=== PATIENT | female | born 1985 | race Caucasian/White ===

== ENCOUNTER 2025-04-09 12:50 | Emergency (ER) | payer MEDICAID ==
[~2025-04-09] VITALS: Ht 160 cm; Wt 54.2 kg
[2025-04-09 13:12] VITALS: BP 123/77; PULSE 96; RESP 18; TEMP 96.6; O2SAT 98
--- NOTE | 2025-04-09 16:24 | Physician Documentation ---
HPI ~ General Chief Complaint: Tooth Problem Stated Complaint: MOUTH INFECTION Time Seen by MD: 15:31 OK to notify your PCP?: Yes Source: patient Mode of Arrival: POV Exam Limitations: no limitations History of Present Illness HPI Comment 39-year-old female with lower jaw dental pain past 2 weeks. She takes opiate medication already for her chronic pain syndrome but she is requesting some antibiotics. She has noticed that she has had some chills and the area seems more red. She has not had any drainage. All those teeth are completely worn down to the gumline and just the roots are visible. She has a upcoming dental appointment to have these teeth pulled. Medication Reconciliation Allergies: Coded Allergies: ibuprofen (Verified Allergy, Severe, 04/09/25) Review of Systems All Other Systems at this time: Reviewed and Negative Physical Exam Vital Signs: RN Vital Signs have been reviewed: Yes, Temperature: 96.6, Source: Temporal, Heart Rate: 96, Respiratory Rate: 18, BP: 123/77, Pulse Oximetry: 98, Weight: 54.200 Pulse Oximetry Reflects: adequate oxygenation Physical Exam General: Alert, no distress. HEENT: No injection, moist mucous membranes. Neck: Full range of motion. Respiratory: No respiratory distress, equal chest rise and fall. Chest: No accessory muscle use. Cardiovascular: Regular rate and rhythm. Gastrointestinal: Nondistended. Extremities: Normal range of motion, no deformity. Neurologic: Oriented x4. Psychiatric: Normal mood and affect. Skin: Normal color, warm and dry. Teeth/Gums: fractured tooth, missing teeth, tender, gingiva redness, gingiva swelling Teeth/Gums Central incisors, lateral incisors and canine teeth bilaterally on the lower jaw Progress Results/Orders Reviewed/noted all lab results: Yes Results/Orders Vital Signs 04/09/25 13:12 Temp 96.6 Pulse 96 Resp 18 B/P (MAP) 123/77 Pulse Ox 98 Medical Decision Making Additional info obtained from: old records Findings [age] old female with dental infection of all of the front lower teeth. She has a upcoming dental appointment to have all of these pulled and has been having increasing pain and swelling over the past 2 weeks. I prescribed her Augmentin with the 1st dose given here in the department. Has pain medication already at home for this she is just requesting some antibiotics. She was given follow up instructions and return instructions. Differential Dx:Considerations: Include: Facial Cellulitis, Tooth avulsion, Trigeminal neuralgia, Tooth subluxation Departure Disposition: 01 HOME / SELF CARE / HOMELESS Impression: Primary Impression: Dental abscess Condition: Stable Discharge Instructions: Dental Abscess Additional Instructions: Follow up with your dentist as scheduled. Return back here for any new or worsening symptoms. Referrals: NO PRIMARY CARE PROVIDER (PCP) Prescriptions Amox Tr/Potassium Clavulanate (Augmentin 875-125 Tablet) 1 Each Tablet 1 TAB PO Q12H for 10 Days, #20 TAB Prov: CHLOÉ GRIGGS 04/09/25 Education Educated: Patient, Family Educated regarding: diagnosis, treatment, prognosis, need for follow up Additional Comment Medical Screen Exam This patient recieved a medical screening examination. After reviewing the individual's medical complaints with presenting symptoms and performing an appropriate physical examination, it was determined that no immediate life- threatening emergency medical condition is present. This individual is also not a women having contractions. Signature Scribe Signature: . Attestation: Scribed for Chloé Griggs by Chloé Eubanks NP . 04/09/25 16:26 Parts of this note were created using [employer] voice recognition software program. While efforts were made to correct any mistakes made by this voice recognition software program, nonsensical phrases may remain in this note. In addition, there may be errors and syntax, grammar, content and spelling. CHLOÉ GRIGGS Apr 09, 2025 16:24
[2025-04-09] MEDS ORDERED: AMOX-117 PO (16:25)
[2025-04-09] MEDS: amox tr/potassium clavulanate 875/125mg TAB PO ONE (16:38)
== END 2025-04-09 16:42 | disposition home or self-care (01) ==
LOC: ER 12:50
DX: K04.7 Periapical abscess without sinus (principal); G89.4 Chronic pain syndrome; Z88.6 Allergy status to analgesic agent
CPT/HCPCS: 99283

== ENCOUNTER 2025-06-04 10:36 | Emergency (ER) | payer MEDICAID ==
[~2025-06-04] VITALS: Ht 177.8 cm; Wt 113.7 kg
[2025-06-04 10:54] VITALS: BP 116/65; PULSE 89; RESP 20; TEMP 97.9; O2SAT 98
--- NOTE | 2025-06-04 11:36 | Physician Documentation ---
HPI ~ General Chief Complaint: Toe pain Stated Complaint: MOUTH INFECTION Time Seen by MD: 11:35 Medication Reconciliation Allergies: Coded Allergies: ibuprofen (Verified Allergy, Severe, 04/09/25) Physical Exam Vital Signs: Temperature: 97.9, Source: Oral, Heart Rate: 89, Respiratory Rate: 20, BP: 116/65, Pulse Oximetry: 98, Weight: 113.700 Progress Results/Orders Results/Orders Vital Signs 06/04/25 10:54 Temp 97.9 Pulse 89 Resp 20 B/P (MAP) 116/65 Pulse Ox 98 Departure Referrals: NO PRIMARY CARE PROVIDER (PCP) DUSTIN VO CRIMPER OPERATOR Jun 04, 2025 11:36
[2025-06-04] MEDS ORDERED: AMOX-580 PO (17:56)
[2025-06-04] MEDS ORDERED: HYDR-3965 PO (18:13)
== END 2025-06-04 12:36 | disposition left against medical advice (07) ==
LOC: ER 10:36
DX: K13.79 Other lesions of oral mucosa (principal); Z53.21 Procedure and treatment not carried out due to patient leaving prior to being seen by health care provider